=== PATIENT | male | born 1935 | race African-American/Black ===

== ENCOUNTER 2018-02-17 12:24 | Outpatient (CLI) | payer MEDICARE, BC | END 2018-02-17 12:25 | disposition home or self-care (01) | LOC: BICULT 12:24 | PROVIDERS: ATTEND Ophthalmology | DX: H34.211 Partial retinal artery occlusion, right eye (principal) | CPT/HCPCS: 93880 ==

== ENCOUNTER 2020-12-10 14:55 | Inpatient (IN) | payer MEDICARE, BC ==
[2020-12-10] MEDS ORDERED: Acetaminophen 325 MG TAB ONE (15:29)
[2020-12-10] MEDS ORDERED: Cefepime 2 GM VIAL ONE (15:29)
[2020-12-10 15:48] LABS: Actual Bicarbonate (HCO3a) 20.9 mEq/L (22-28); Analyzer IN Cardio ER; Base Excess (BEa) -2.3 mEq/L (-2.0 to +3.0); CO2 Tension 31.6 mmHg (35.0-45.0); Calcium, Ionized (arterial) 1.16 mmol/L (1.12-1.30); Carboxyhemoglobin (COHb) 0.9 gm% (0.0-3.0); Hemoglobin (Hb) 13.7 g/dL (14.0-18.0); O2 Tension (PaO2), arterial 75.9 mmHg (> 60.0); Potassium - ABG Lab 4.09 mmol/L (3.70-5.30); pH, Arterial 7.44 (7.35-7.45)
[2020-12-10 15:59] LABS: Puncture Site LRA
[2020-12-10 16:05] LABS: Hemoglobin 13.4 g/dL (14.0-18.0); Mean Corpuscular Hemoglobin 31.8 pg (27.0-31.0); Mean Corpuscular Volume 93.5 fL (78.0-98.0); Mean Platelet Volume 8.4 fL (7.4-10.4); Platelet Count 163 thou/uL (130-400); RBC Distribution Width 13.2 % (11.5-14.5); Red Blood Cell (RBC) Count 4.22 mill/uL (4.70-6.10); White Blood Cell (WBC) Count 14.1 thou/uL (4.8-10.8)
[2020-12-10 16:20] LABS: ALT (SGPT) 40 U/L (8-55); AST (SGOT) 58 U/L (5-34); Albumin 3.6 g/dL (3.4-4.8); Alkaline Phosphatase 71 U/L (40-110); Anion Gap 11 mmol/L (10-20); BUN (Urea Nitrogen) 26 mg/dL (8.4-25.7); Bilirubin, Total 1.3 mg/dL (0.2-1.2); Calc. Creatinine Clearance 0 mL/min (70-130); Calcium 8.4 mg/dL (7.8-10.44); Carbon Dioxide 23 mmol/L (23-31); Chloride 103 mmol/L (98-107); Globulin 3.4 g/dL (2.4-3.5); Glucose 188 mg/dL (83-110); Potassium 4.2 mmol/L (3.5-5.1); Sodium 133 mmol/L (136-145)
[2020-12-10 16:22] LABS: Band 30 % (5-11); Lymphocytes 2 % (21-51); MDiff Complete? YES; Monocytes 5 % (0-10); Neutrophil 58 % (42-75); Platelet Morphology Comment Appears Adequate; RBC Morphology Normal; Reactive Lymphocytes 5 % (0-10)
[2020-12-10] MEDS ORDERED: VANCOMYCIN 2 GRAM/400 ML BAG 2 GM in Premix Bag 1 BAG IVPB SCH (16:45)
[2020-12-10 16:57] LABS: Bacteria/HPF 1+ HPF (None Seen); Bilirubin Negative (Negative); Blood, Urine 3+ (Negative); Clarity Extra Turbid (Clear); Glucose, Urine (Dipstick) Normal (Negative); Ketone, Urine Trace mg/dL (Negative); Leukocyte 500 Leu/uL (Negative); Nitrite Negative (Negative); Protein, Urine (Dipstick) 70 mg/dL (Neg-Trace); RBC/HPF Greater than 50 HPF (0-3); Squamous Epithelial 0-3 HPF (0-3); Urobilinogen 6 mg/dL (Less than 2); WBC/HPF Greater than 50 HPF (0-3)
[2020-12-10 17:01] LABS: SARS-CoV-2 NAA Rapid Test Not Detected (NotDetected)
[2020-12-10 19:27] LABS: Lactic Acid 1.7 mmol/L (0.5-2.2)
[2020-12-10 20:38] VITALS: BMI 34.3
[2020-12-10] MEDS: Sodium Chloride 0.9% 1,000 ML IV SCH (22:00)
[2020-12-11] MEDS: Acetaminophen 500 MG TAB PO PRN (07:58)
[2020-12-11] MEDS: Sodium Chloride 0.9% 1,000 ML IV SCH ×2 (07:58→21:19)
[2020-12-11] MEDS ORDERED: FLU VACC QS2020-21(65YR UP)/PF 240 MCG/0.7 ML SYRINGE IM ONE (09:00)
[2020-12-11] MEDS ORDERED: Cefepime 2 GM in Sodium Chloride 0.9% 100 ML IVPB SCH (09:00)
[2020-12-11] MEDS ORDERED: Vancomycin 1 GM in Premix Bag 1 BAG IVPB SCH (09:00)
[2020-12-11 11:00] LABS: Anion Gap 9 mmol/L (10-20); BUN (Urea Nitrogen) 23 mg/dL (8.4-25.7); Calc. Creatinine Clearance 52 mL/min (70-130); Calcium 8.3 mg/dL (7.8-10.44); Carbon Dioxide 24 mmol/L (23-31); Chloride 104 mmol/L (98-107); Glucose 142 mg/dL (83-110); Potassium 3.9 mmol/L (3.5-5.1); Sodium 133 mmol/L (136-145)
[2020-12-11] MEDS: Cefepime 2 GM in Sodium Chloride 0.9% 100 ML IVPB SCH (14:41)
[2020-12-11] MEDS ORDERED: Vancomycin 1.5 GRAM/300 ML BAG 1.5 GM in Premix Bag 1 BAG IVPB SCH (15:00)
[2020-12-11] MEDS ORDERED: Lidocaine 1% (PF) 30 ML VIAL ONE (17:26)
[2020-12-11] MEDS ORDERED: Fentanyl 100 MCG/2 ML VIAL ONE (18:14)
[2020-12-11] MEDS ORDERED: Dexamethasone 20 MG/5 ML VIAL ONE (18:19)
[2020-12-11] MEDS ORDERED: PROPOFOL 200 MG/20 ML VIAL ONE (18:19)
[2020-12-11] MEDS ORDERED: Ondansetron PF 4 MG/2 ML Vial ONE (18:19)
[2020-12-11] MEDS ORDERED: Lidocaine 1% PF 5 ML VIAL ONE (18:19)
[2020-12-11] MEDS ORDERED: Ondansetron HCl/PF 4 MG/2 ML Vial IVP PRN (19:01)
[2020-12-11] MEDS ORDERED: Promethazine HCl 25 MG/ML VIAL IM PRN (19:01)
[2020-12-11] MEDS ORDERED: Promethazine HCl 25 MG/ML VIAL SLOW IVP PRN (19:01)
[2020-12-11] MEDS: Tamsulosin HCl 0.4 MG CAP PO SCH (21:19)
[2020-12-11] MEDS: Donepezil HCl 10 MG TAB PO SCH (21:19)
[2020-12-12] MEDS: Sodium Chloride 0.9% 1,000 ML IV SCH ×3 (05:25→23:57)
[2020-12-12 09:47] LABS: #Lymphocytes 1.1 thou/uL (1.20-3.40); #Monocytes 0.8 thou/uL (0.11-0.59); #Neutrophils 6.2 thou/uL (1.40-6.50); %Basophils 0.1 % (0.0-1.0); %Eosinophils 0.1 % (0.0-10.0); %Lymphocytes 13.4 % (21.0-51.0); %Monocytes 9.4 % (0.0-10.0); %Neutrophils 77.1 % (42.0-75.0); Hemoglobin 12.7 g/dL (14.0-18.0); Mean Corpuscular HGB CONC 32.1 g/dL (32.0-36.0); Mean Corpuscular Hemoglobin 29.9 pg (27.0-31.0); Mean Platelet Volume 8.6 fL (7.4-10.4); Platelet Count 158 thou/uL (130-400); RBC Distribution Width 12.9 % (11.5-14.5); Red Blood Cell (RBC) Count 4.27 mill/uL (4.70-6.10); White Blood Cell (WBC) Count 8.1 thou/uL (4.8-10.8)
[2020-12-12 09:59] LABS: Anion Gap 13 mmol/L (10-20); BUN (Urea Nitrogen) 21 mg/dL (8.4-25.7); Calc. Creatinine Clearance 66 mL/min (70-130); Calcium 8.5 mg/dL (7.8-10.44); Carbon Dioxide 21 mmol/L (23-31); Chloride 107 mmol/L (98-107); Glucose 133 mg/dL (83-110); Potassium 4.7 mmol/L (3.5-5.1); Sodium 136 mmol/L (136-145)
[2020-12-12] MEDS: Cefepime 2 GM in Sodium Chloride 0.9% 100 ML IVPB SCH (13:40)
[2020-12-12 14:44] LABS: Vancomycin, Trough 7.8 ug/mL
[2020-12-12] MEDS ORDERED: ALPRAZolam 0.25 MG TAB PO PRN (16:06)
[2020-12-12] MEDS ORDERED: ALPRAZolam 0.5 MG TAB PO SCH (20:45)
[2020-12-12] MEDS: Tamsulosin HCl 0.4 MG CAP PO SCH (20:53)
[2020-12-12] MEDS: Donepezil HCl 10 MG TAB PO SCH (20:53)
[2020-12-13] MEDS ORDERED: Lorazepam 2 MG/ML VIAL SLOW IVP SCH (00:15)
[2020-12-13] MEDS: Cefepime 2 GM in Sodium Chloride 0.9% 100 ML IVPB SCH (15:13)
[2020-12-13] MEDS: Sodium Chloride 0.9% 1,000 ML IV SCH ×2 (16:47→20:39)
[2020-12-13] MEDS: Donepezil HCl 10 MG TAB PO SCH (20:38)
[2020-12-13] MEDS: Tamsulosin HCl 0.4 MG CAP PO SCH (20:38)
[2020-12-14] MEDS ORDERED: Non-Formulary Item 1 EACH (Amlodipine Besylate [Amlodipine Besylate] 2.5 MG Tablet) PO SCH (09:00)
[2020-12-14] MEDS: Allopurinol 300 MG TAB PO SCH (09:12)
[2020-12-14] MEDS: Amlodipine 5 MG TAB PO SCH (09:12)
[2020-12-14] MEDS: Losartan 25 MG TAB PO SCH (09:13)
[2020-12-14] MEDS: Cefepime 2 GM in Sodium Chloride 0.9% 100 ML IVPB SCH (14:21)
[2020-12-14] MEDS: Sodium Chloride 0.9% 1,000 ML IV SCH ×2 (14:21→19:28)
[2020-12-14] MEDS: Acetaminophen 500 MG TAB PO PRN (17:02)
[2020-12-14] MEDS: Tamsulosin HCl 0.4 MG CAP PO SCH (19:28)
[2020-12-14] MEDS: Donepezil HCl 10 MG TAB PO SCH (19:28)
[2020-12-15] MEDS: Sodium Chloride 0.9% 1,000 ML IV SCH ×2 (02:53→12:51)
[2020-12-15] MEDS: Allopurinol 300 MG TAB PO SCH (08:57)
[2020-12-15] MEDS: Amlodipine 5 MG TAB PO SCH (08:57)
[2020-12-15] MEDS: Losartan 25 MG TAB PO SCH (08:58)
[2020-12-15] MEDS ORDERED: Cefdinir 300 MG CAP PO SCH (09:00)
[2020-12-15 17:40] VITALS: BP 132/71; TEMP 97.9
== END 2020-12-15 18:30 | disposition home or self-care (01) | DRG 871 ==
LOC: ERS 14:55 → 2NO 17:22 → ONC 12-12 15:36
PROVIDERS: ADMIT Internal Medicine; ATTEND Internal Medicine
PROC: 0T7D8ZZ Dilation of Urethra, Via Natural or Artificial Opening Endoscopic (ICD-10-PCS; principal; 2020-12-11)
PROC: 0T9B80Z Drainage of Bladder with Drainage Device, Via Natural or Artificial Opening Endoscopic (ICD-10-PCS; 2020-12-11)
DX: A41.9 Sepsis, unspecified organism (principal); G93.41 Metabolic encephalopathy; N39.0 Urinary tract infection, site not specified; E87.1 Hypo-osmolality and hyponatremia; N17.9 Acute kidney failure, unspecified; E87.2 Acidosis; F03.90 Unspecified dementia, unspecified severity, without behavioral disturbance, psychotic disturbance, mood disturbance, and anxiety; N35.919 Unspecified urethral stricture, male, unspecified site; R65.20 Severe sepsis without septic shock; R33.9 Retention of urine, unspecified; I10 Essential (primary) hypertension; M10.9 Gout, unspecified; Z20.822 Contact with and (suspected) exposure to COVID-19
CPT/HCPCS: 0240U; 36415; 36600; 71045; 74177; 80048; 80053; 80202; 81003; 81015; 82805; 83605; 85025; 87040; 87086; 93005; 93306; 96365; 96366; 96367; J0692; J1100; J2001; J2060; J2405; J2704; J3010; J3370; J3490

== ENCOUNTER 2020-12-22 13:14 | Inpatient (IN) | payer MEDICARE, BC ==
[2020-12-22 13:50] LABS: #Basophils 0.1 thou/uL (0.0-0.2); #Eosinphils 0.2 thou/uL (0.0-0.7); #Lymphocytes 1.1 thou/uL (1.20-3.40); #Monocytes 0.7 thou/uL (0.11-0.59); #Neutrophils 8.1 thou/uL (1.40-6.50); %Basophils 0.6 % (0.0-1.0); %Eosinophils 2.1 % (0.0-10.0); %Lymphocytes 10.7 % (21.0-51.0); %Monocytes 6.8 % (0.0-10.0); %Neutrophils 79.8 % (42.0-75.0); Hemoglobin 12.9 g/dL (14.0-18.0); Mean Corpuscular Hemoglobin 31.8 pg (27.0-31.0); Mean Corpuscular Volume 93.7 fL (78.0-98.0); Mean Platelet Volume 8.1 fL (7.4-10.4); Platelet Count 168 thou/uL (130-400); RBC Distribution Width 12.7 % (11.5-14.5); Red Blood Cell (RBC) Count 4.07 mill/uL (4.70-6.10); White Blood Cell (WBC) Count 10.2 thou/uL (4.8-10.8)
[2020-12-22] MEDS ORDERED: Cefepime 2 GM VIAL ONE (14:09)
[2020-12-22 14:11] LABS: ALT (SGPT) 37 U/L (8-55); AST (SGOT) 47 U/L (5-34); Albumin 3.6 g/dL (3.4-4.8); Alkaline Phosphatase 83 U/L (40-110); Anion Gap 10 mmol/L (10-20); BUN (Urea Nitrogen) 16 mg/dL (8.4-25.7); Bilirubin, Total 1.3 mg/dL (0.2-1.2); Calc. Creatinine Clearance 0 mL/min (70-130); Calcium 8.8 mg/dL (7.8-10.44); Carbon Dioxide 29 mmol/L (23-31); Chloride 98 mmol/L (98-107); Glucose 106 mg/dL (83-110); Lipase 40 U/L (8-78); Potassium 4.4 mmol/L (3.5-5.1); Protein, Total 7.6 g/dL (5.8-8.1); Sodium 133 mmol/L (136-145)
[2020-12-22 14:23] LABS: Bacteria/HPF 1+ HPF (None Seen); Bilirubin Negative (Negative); Blood, Urine Trace (Negative); Clarity Clear (Clear); Glucose, Urine (Dipstick) Normal (Negative); Ketone, Urine Negative (Negative); Leukocyte Negative Leu/uL (Negative); Nitrite Negative (Negative); Protein, Urine (Dipstick) 20 mg/dL (Neg-Trace); Specific Gravity, Urine 1.023 (1.002-1.036); Squamous Epithelial None Seen HPF (0-3); pH, Urine 7.5 (5.0-9.0)
[2020-12-22] MEDS ORDERED: Vancomycin 1 GM/200 ML BAG ONE (15:12)
[2020-12-22] MEDS ORDERED: Acetaminophen 500 MG TAB ONE (15:32)
[2020-12-22] MEDS ORDERED: Oseltamivir 75 MG CAP PO SCH (16:30)
[2020-12-22 17:19] LABS: SARS-CoV-2 PCR by NAA Not Detected (NotDetected)
[2020-12-22] MEDS ORDERED: Senokot S 8.6-50 MG TAB PO PRN (17:39)
[2020-12-22] MEDS ORDERED: Sodium Chloride 0.9% 500 ML IV SCH (17:45)
[2020-12-22 19:34] VITALS: BMI 35.6
[2020-12-22] MEDS: Donepezil HCl 10 MG TAB PO SCH ×2 (20:03→20:26)
[2020-12-22] MEDS: Famotidine 20 MG TAB PO SCH ×2 (20:03→20:25)
[2020-12-23] MEDS: Acetaminophen 325 MG TAB PO PRN ×2 (01:08→19:36)
[2020-12-23] MEDS: Famotidine 20 MG TAB PO SCH ×2 (08:05→19:36)
[2020-12-23] MEDS: Oseltamivir 75 MG CAP PO SCH ×2 (08:05→19:36)
[2020-12-23] MEDS: Losartan 25 MG TAB PO SCH (08:05)
[2020-12-23] MEDS: Amlodipine 5 MG TAB PO SCH (08:05)
[2020-12-23] MEDS: Enoxaparin Sodium 40 MG/0.4 ML SYRINGE SC SCH (08:06)
[2020-12-23] MEDS: Allopurinol 300 MG TAB PO SCH (08:06)
[2020-12-23 17:16] LABS: #Eosinphils 0.4 thou/uL (0.0-0.7); #Lymphocytes 1.3 thou/uL (1.20-3.40); #Monocytes 0.8 thou/uL (0.11-0.59); #Neutrophils 5.3 thou/uL (1.40-6.50); %Basophils 0.2 % (0.0-1.0); %Eosinophils 5.3 % (0.0-10.0); %Lymphocytes 16.6 % (21.0-51.0); %Monocytes 10.2 % (0.0-10.0); %Neutrophils 67.8 % (42.0-75.0); Hemoglobin 12.4 g/dL (14.0-18.0); Mean Corpuscular HGB CONC 32.7 g/dL (32.0-36.0); Mean Corpuscular Hemoglobin 30.3 pg (27.0-31.0); Mean Corpuscular Volume 92.6 fL (78.0-98.0); Mean Platelet Volume 8.4 fL (7.4-10.4); Platelet Count 169 thou/uL (130-400); RBC Distribution Width 12.8 % (11.5-14.5); Red Blood Cell (RBC) Count 4.09 mill/uL (4.70-6.10); White Blood Cell (WBC) Count 7.9 thou/uL (4.8-10.8)
[2020-12-23 17:38] LABS: Anion Gap 11 mmol/L (10-20); BUN (Urea Nitrogen) 17 mg/dL (8.4-25.7); Calc. Creatinine Clearance 60 mL/min (70-130); Calcium 8.6 mg/dL (7.8-10.44); Carbon Dioxide 28 mmol/L (23-31); Chloride 97 mmol/L (98-107); Glucose 136 mg/dL (83-110); Sodium 132 mmol/L (136-145)
[2020-12-23] MEDS: Donepezil HCl 10 MG TAB PO SCH (19:35)
[2020-12-23] MEDS: ALPRAZolam 0.25 MG TAB PO PRN (20:00)
[2020-12-23] MEDS ORDERED: traZODone HCl 50 MG TAB PO SCH (23:59)
[2020-12-24] MEDS: Amlodipine 5 MG TAB PO SCH (13:07)
[2020-12-24] MEDS: Famotidine 20 MG TAB PO SCH ×2 (13:07→20:06)
[2020-12-24] MEDS: Acetaminophen 325 MG TAB PO PRN (13:07)
[2020-12-24] MEDS: Allopurinol 300 MG TAB PO SCH (13:07)
[2020-12-24] MEDS: Losartan 25 MG TAB PO SCH (13:08)
[2020-12-24] MEDS: Oseltamivir 75 MG CAP PO SCH ×2 (13:08→20:06)
[2020-12-24] MEDS: Enoxaparin Sodium 40 MG/0.4 ML SYRINGE SC SCH (13:08)
[2020-12-24] MEDS: Donepezil HCl 10 MG TAB PO SCH (20:06)
[2020-12-24] MEDS: ALPRAZolam 0.25 MG TAB PO PRN (20:07)
[2020-12-25 07:57] VITALS: BP 120/71; TEMP 97.7
[2020-12-25] MEDS: Famotidine 20 MG TAB PO SCH (09:36)
[2020-12-25] MEDS: Amlodipine 5 MG TAB PO SCH (09:36)
[2020-12-25] MEDS: Enoxaparin Sodium 40 MG/0.4 ML SYRINGE SC SCH (09:36)
[2020-12-25] MEDS: Allopurinol 300 MG TAB PO SCH (09:38)
[2020-12-25] MEDS: Oseltamivir 75 MG CAP PO SCH (09:38)
[2020-12-25] MEDS: Losartan 25 MG TAB PO SCH (09:38)
[2020-12-25] MEDS ORDERED: Cefdinir 300 MG CAP PO SCH (12:30)
[2020-12-26] MEDS ORDERED: Cefdinir 300 MG CAP PO SCH (09:00)
== END 2020-12-25 14:16 | disposition home or self-care (01) | DRG 193 ==
LOC: ERS 13:14 → T4-A 17:24 → OBSVTOIN 12-23 12:53
PROVIDERS: ADMIT Internal Medicine; ATTEND Internal Medicine
DX: J10.1 Influenza due to other identified influenza virus with other respiratory manifestations (principal); G93.41 Metabolic encephalopathy; I50.32 Chronic diastolic (congestive) heart failure; N39.0 Urinary tract infection, site not specified; N17.9 Acute kidney failure, unspecified; I13.0 Hypertensive heart and chronic kidney disease with heart failure and stage 1 through stage 4 chronic kidney disease, or unspecified chronic kidney disease; Z16.29 Resistance to other single specified antibiotic; F03.90 Unspecified dementia, unspecified severity, without behavioral disturbance, psychotic disturbance, mood disturbance, and anxiety; B96.5 Pseudomonas (aeruginosa) (mallei) (pseudomallei) as the cause of diseases classified elsewhere; R33.9 Retention of urine, unspecified; N18.9 Chronic kidney disease, unspecified; I25.10 Atherosclerotic heart disease of native coronary artery without angina pectoris; Z20.822 Contact with and (suspected) exposure to COVID-19
CPT/HCPCS: 36415; 70450; 71045; 80048; 80053; 81003; 81015; 83605; 83690; 83880; 84484; 85025; 87040; 87077; 87086; 87186; 87635; 87804; 93005; 96365; 96367; 96372; G0378; J0692; J1650; J3370; U0003; U0005

== ENCOUNTER 2021-06-04 13:27 | Outpatient (CLI) | payer MEDICARE, BC | END 2021-06-04 13:28 | disposition home or self-care (01) | LOC: BICCT 13:27 | PROVIDERS: ATTEND Psychiatry & Neurology Neurology | DX: F03.90 Unspecified dementia, unspecified severity, without behavioral disturbance, psychotic disturbance, mood disturbance, and anxiety (principal); I67.89 Other cerebrovascular disease | CPT/HCPCS: 70450 ==

== ENCOUNTER 2021-07-14 22:43 | Emergency (ER) | payer MEDICARE, BC ==
[2021-07-15 00:17] LABS: #Eosinphils 0.5 thou/uL (0.0-0.7); #Lymphocytes 1.8 thou/uL (1.20-3.40); #Monocytes 0.6 thou/uL (0.11-0.59); #Neutrophils 3.7 thou/uL (1.40-6.50); %Basophils 0.5 % (0.0-1.0); %Eosinophils 7.5 % (0.0-10.0); %Lymphocytes 26.9 % (21.0-51.0); %Monocytes 9.6 % (0.0-10.0); %Neutrophils 55.5 % (42.0-75.0); Hemoglobin 12.7 g/dL (14.0-18.0); Mean Corpuscular HGB CONC 34.2 g/dL (32.0-36.0); Mean Corpuscular Hemoglobin 31.6 pg (27.0-31.0); Mean Corpuscular Volume 92.4 fL (78.0-98.0); Mean Platelet Volume 8.2 fL (7.4-10.4); Platelet Count 175 thou/uL (130-400); RBC Distribution Width 13.6 % (11.5-14.5); Red Blood Cell (RBC) Count 4.02 mill/uL (4.70-6.10); White Blood Cell (WBC) Count 6.7 thou/uL (4.8-10.8)
[2021-07-15 00:36] LABS: Anion Gap 11 mmol/L (10-20); BUN (Urea Nitrogen) 11 mg/dL (8.4-25.7); Calc. Creatinine Clearance 0 mL/min (70-130); Calcium 9.3 mg/dL (7.8-10.44); Carbon Dioxide 28 mmol/L (23-31); Chloride 102 mmol/L (98-107); Glucose 116 mg/dL (83-110); Potassium 4.3 mmol/L (3.5-5.1); Sodium 137 mmol/L (136-145)
[2021-07-15 01:13] LABS: ALT (SGPT) 35 U/L (8-55); AST (SGOT) 55 U/L (5-34); Albumin 3.7 g/dL (3.4-4.8); Alkaline Phosphatase 84 U/L (40-110); Bilirubin, Direct 0.3 mg/dL (0.1-0.3); Bilirubin, Total 0.8 mg/dL (0.2-1.2); Lipase 28 U/L (8-78); Protein, Total 7.4 g/dL (5.8-8.1)
[2021-07-15 02:26] LABS: Bacteria/HPF None Seen HPF (None Seen); Bilirubin Negative (Negative); Blood, Urine 1+ (Negative); Clarity Extra Turbid (Clear); Glucose, Urine (Dipstick) Normal (Negative); Ketone, Urine Negative (Negative); Leukocyte 500 Leu/uL (Negative); Nitrite 1+ (Negative); Protein, Urine (Dipstick) 10 mg/dL (Neg-Trace); Specific Gravity, Urine 1.013 (1.002-1.036); Squamous Epithelial None Seen HPF (0-3); Urobilinogen Normal mg/dL (Less than 2); WBC/HPF Greater than 50 HPF (0-3); pH, Urine 6.5 (5.0-9.0)
[2021-07-15] MEDS ORDERED: Lidocaine 1% (PF) 30 ML VIAL ONE (03:02)
[2021-07-15] MEDS ORDERED: cefTRIAXone\\ROCEPHIN 1 GM VIAL ONE (03:02)
== END 2021-07-15 03:40 | disposition home or self-care (01) ==
LOC: ERS 22:43
DX: N39.0 Urinary tract infection, site not specified (principal); Z87.891 Personal history of nicotine dependence; F03.90 Unspecified dementia, unspecified severity, without behavioral disturbance, psychotic disturbance, mood disturbance, and anxiety
CPT/HCPCS: 36415; 51701; 70450; 71045; 80048; 80076; 81003; 81015; 83690; 85025; 87077; 87086; 87186; 96372; J0696; J2001

== ENCOUNTER 2022-12-28 18:16 | Inpatient (IN) | payer MEDICARE, BC ==
[2022-12-28 19:02] LABS: #Lymphocytes 1.9 thou/uL (1.20-3.40); #Monocytes 0.5 thou/uL (0.11-0.59); #Neutrophils 3.2 thou/uL (1.40-6.50); %Basophils 0.4 % (0.0-1.0); %Eosinophils 0.7 % (0.0-10.0); %Lymphocytes 33.7 % (21.0-51.0); %Monocytes 9.4 % (0.0-10.0); %Neutrophils 55.9 % (42.0-75.0); Hemoglobin 11.7 g/dL (14.0-18.0); Mean Corpuscular Volume 96.9 fl (78.0-98.0); Mean Platelet Volume 8.4 fL (7.4-10.4); Platelet Count 135 10x3/uL (130-400); RBC Distribution Width 13.4 % (11.5-14.5); Red Blood Cell (RBC) Count 3.66 mill/uL (4.70-6.10); White Blood Cell (WBC) Count 5.8 10x3/uL (4.8-10.8)
[2022-12-28 19:17] LABS: PTT 28.1 sec (22.9-36.1); Prothrombin Time 13.9 sec (12.0-14.7)
[2022-12-28 19:27] LABS: ALT (SGPT) 12 U/L (8-55); AST (SGOT) 27 U/L (5-34); Albumin 3.6 g/dL (3.4-4.8); Alkaline Phosphatase 72 U/L (40-110); Anion Gap 11 mmol/L (10-20); BUN (Urea Nitrogen) 20 mg/dL (8.4-25.7); Bilirubin, Total 0.5 mg/dL (0.2-1.2); Calc. Creatinine Clearance 0 mL/min (70-130); Calcium 9.3 mg/dL (7.8-10.44); Carbon Dioxide 26 mmol/L (23-31); Chloride 104 mmol/L (98-107); Estimated GFR 34; Globulin 3.6 g/dL (2.4-3.5); Glucose 120 mg/dL (83-110); Lipase 59 U/L (8-78); Potassium 4.1 mmol/L (3.5-5.1); Protein, Total 7.2 g/dL (5.8-8.1); Sodium 137 mmol/L (136-145)
[2022-12-28 20:59] LABS: Bacteria/HPF 4+ HPF (None Seen); Bilirubin Negative (Negative); Blood, Urine 3+ (Negative); Clarity Extra Turbid (Clear); Glucose, Urine (Dipstick) Normal (Negative); Ketone, Urine Negative (Negative); Leukocyte 500 Leu/uL (Negative); Nitrite 2+ (Negative); Protein, Urine (Dipstick) 30 mg/dL (Neg-Trace); RBC/HPF Greater than 50 HPF (0-3); Specific Gravity, Urine 1.021 (1.002-1.036); Urobilinogen Normal mg/dL (Less than 2); WBC/HPF Greater than 50 HPF (0-3); pH, Urine 5.5 (5.0-9.0)
[2022-12-28] MEDS ORDERED: Ondansetron ODT 4 MG TAB SL PRN (22:30)
[2022-12-28] MEDS ORDERED: Ondansetron PF 4 MG/2 ML Vial IVP PRN (22:30)
[2022-12-28] MEDS ORDERED: cefTRIAXone (ROCEPHIN) 2 GM VIAL ONE (22:32)
[2022-12-28 23:22] LABS: Troponin I Less than 0.010 ng/mL (< 0.028)
[2022-12-28 23:44] VITALS: BMI 33.5
[2022-12-28] MEDS ORDERED: Donepezil HCl 10 MG TAB PO SCH (23:45)
[2022-12-28] MEDS ORDERED: Tamsulosin HCl 0.4 MG CAP PO SCH (23:45)
[2022-12-28] MEDS ORDERED: QUEtiapine 25 MG TAB PO SCH (23:45)
[2022-12-29] MEDS: Sodium Chloride 0.9% 1,000 ML IV SCH ×2 (00:01→11:17)
[2022-12-29] MEDS: traMADol HCl 50 MG TAB PO PRN (00:17)
[2022-12-29 02:15] LABS: Troponin I Less than 0.010 ng/mL (< 0.028)
[2022-12-29] MEDS: Cefepime 2 GM in Sodium Chloride 0.9% 100 ML IVPB SCH ×2 (05:20→18:27)
[2022-12-29 06:19] LABS: #Lymphocytes 1.6 thou/uL (1.20-3.40); #Monocytes 0.6 thou/uL (0.11-0.59); #Neutrophils 3.4 thou/uL (1.40-6.50); %Basophils 0.1 % (0.0-1.0); %Eosinophils 0.9 % (0.0-10.0); %Lymphocytes 27.7 % (21.0-51.0); %Monocytes 10.3 % (0.0-10.0); %Neutrophils 61.1 % (42.0-75.0); Hemoglobin 10.8 g/dL (14.0-18.0); Mean Corpuscular HGB CONC 33.1 g/dL (32.0-36.0); Mean Corpuscular Hemoglobin 32.5 pg (27.0-31.0); Mean Platelet Volume 8.4 fL (7.4-10.4); Platelet Count 125 10x3/uL (130-400); RBC Distribution Width 13.5 % (11.5-14.5); Red Blood Cell (RBC) Count 3.34 mill/uL (4.70-6.10); White Blood Cell (WBC) Count 5.6 10x3/uL (4.8-10.8)
[2022-12-29 06:43] LABS: Anion Gap 11 mmol/L (10-20); BUN (Urea Nitrogen) 22 mg/dL (8.4-25.7); Calc. Creatinine Clearance 38 mL/min (70-130); Calcium 8.5 mg/dL (7.8-10.44); Carbon Dioxide 26 mmol/L (23-31); Chloride 106 mmol/L (98-107); Estimated GFR 33; Glucose 120 mg/dL (83-110); Potassium 3.9 mmol/L (3.5-5.1); Sodium 139 mmol/L (136-145)
[2022-12-29] MEDS: Escitalopram Oxalate 20 mg Tablet PO SCH (09:07)
[2022-12-29] MEDS: Allopurinol 300 MG TAB PO SCH (09:07)
[2022-12-29] MEDS: Losartan 25 MG TAB PO SCH (09:19)
[2022-12-29] MEDS: Amlodipine 5 MG TAB PO SCH (09:19)
[2022-12-29] MEDS: QUEtiapine 25 MG TAB PO SCH (20:37)
[2022-12-29] MEDS: Ziprasidone 20 MG CAP PO SCH (20:37)
[2022-12-29] MEDS: Acetaminophen 325 MG TAB PO PRN (20:37)
[2022-12-29] MEDS: Tamsulosin HCl 0.4 MG CAP PO SCH (20:38)
[2022-12-29] MEDS: Donepezil HCl 10 MG TAB PO SCH (20:38)
[2022-12-29] MEDS ORDERED: cefTRIAXone\\ROCEPHIN 1 GM in Sodium Chloride 0.9% 100 ML IVPB SCH (21:00)
[2022-12-30] MEDS: Cefepime 2 GM in Sodium Chloride 0.9% 100 ML IVPB SCH ×2 (05:28→18:41)
[2022-12-30] MEDS: Allopurinol 300 MG TAB PO SCH (09:13)
[2022-12-30] MEDS: Escitalopram Oxalate 20 mg Tablet PO SCH (09:13)
[2022-12-30] MEDS: Losartan 25 MG TAB PO SCH (09:13)
[2022-12-30] MEDS: Amlodipine 5 MG TAB PO SCH (09:13)
[2022-12-30] MEDS: Sodium Chloride 0.9% 1,000 ML IV SCH (12:15)
[2022-12-30] MEDS: Ciprofloxacin 0.3% Ophth Soln 2.5 ml Bottle EA EYE SCH (20:03)
[2022-12-30] MEDS: Ziprasidone 20 MG CAP PO SCH (20:04)
[2022-12-30] MEDS: QUEtiapine 25 MG TAB PO SCH (20:04)
[2022-12-30] MEDS: Donepezil HCl 10 MG TAB PO SCH (20:04)
[2022-12-30] MEDS: Tamsulosin HCl 0.4 MG CAP PO SCH (20:04)
[2022-12-30] MEDS: Acetaminophen 325 MG TAB PO PRN (20:05)
[2022-12-31] MEDS: Cefepime 2 GM in Sodium Chloride 0.9% 100 ML IVPB SCH ×2 (05:27→17:20)
[2022-12-31] MEDS: Amlodipine 5 MG TAB PO SCH (08:26)
[2022-12-31] MEDS: Losartan 25 MG TAB PO SCH (08:26)
[2022-12-31] MEDS: Escitalopram Oxalate 20 mg Tablet PO SCH (08:26)
[2022-12-31] MEDS: Allopurinol 300 MG TAB PO SCH (08:26)
[2022-12-31] MEDS: Ciprofloxacin 0.3% Ophth Soln 2.5 ml Bottle EA EYE SCH ×2 (08:33→21:26)
[2022-12-31] MEDS: Sodium Chloride 0.9% 1,000 ML IV SCH (11:23)
[2022-12-31] MEDS: Acetaminophen 325 MG TAB PO PRN ×2 (16:16→21:28)
[2022-12-31] MEDS: QUEtiapine 25 MG TAB PO SCH (21:26)
[2022-12-31] MEDS: Ziprasidone 20 MG CAP PO SCH (21:27)
[2022-12-31] MEDS: Tamsulosin HCl 0.4 MG CAP PO SCH (21:27)
[2022-12-31] MEDS: Donepezil HCl 10 MG TAB PO SCH (21:27)
[2022-12-31] MEDS: traMADol HCl 50 MG TAB PO PRN (21:27)
[2023-01-01] MEDS: Sodium Chloride 0.9% 1,000 ML IV SCH (05:34)
[2023-01-01] MEDS: Cefepime 2 GM in Sodium Chloride 0.9% 100 ML IVPB SCH (05:34)
[2023-01-01] MEDS: Ciprofloxacin 0.3% Ophth Soln 2.5 ml Bottle EA EYE SCH ×2 (09:45→21:25)
[2023-01-01] MEDS: Losartan 25 MG TAB PO SCH (09:49)
[2023-01-01] MEDS: Amlodipine 5 MG TAB PO SCH (09:49)
[2023-01-01] MEDS: Escitalopram Oxalate 20 mg Tablet PO SCH (09:50)
[2023-01-01] MEDS: Allopurinol 300 MG TAB PO SCH (09:50)
[2023-01-01] MEDS ORDERED: Cefdinir 300 MG CAP PO SCH (16:45)
[2023-01-01] MEDS ORDERED: Cefepime 1 GM in Sodium Chloride 0.9% 100 ML IVPB SCH (18:00)
[2023-01-01] MEDS: Ziprasidone 20 MG CAP PO SCH (21:24)
[2023-01-01] MEDS: QUEtiapine 25 MG TAB PO SCH (21:26)
[2023-01-01] MEDS: Tamsulosin HCl 0.4 MG CAP PO SCH (21:26)
[2023-01-01] MEDS: Donepezil HCl 10 MG TAB PO SCH (21:26)
[2023-01-01] MEDS: Acetaminophen 325 MG TAB PO PRN (21:26)
[2023-01-01] MEDS: traMADol HCl 50 MG TAB PO PRN (21:27)
[2023-01-02] MEDS: Sodium Chloride 0.9% 1,000 ML IV SCH ×2 (01:00→23:00)
[2023-01-02] MEDS: Ciprofloxacin 0.3% Ophth Soln 2.5 ml Bottle EA EYE SCH ×2 (10:38→20:50)
[2023-01-02] MEDS: Escitalopram Oxalate 20 mg Tablet PO SCH (10:39)
[2023-01-02] MEDS: Losartan 25 MG TAB PO SCH (10:39)
[2023-01-02] MEDS: Allopurinol 300 MG TAB PO SCH (10:39)
[2023-01-02] MEDS: Amlodipine 5 MG TAB PO SCH (10:39)
[2023-01-02] MEDS: Cefdinir 300 MG CAP PO SCH (10:40)
[2023-01-02] MEDS: Acetaminophen 325 MG TAB PO PRN (16:46)
[2023-01-02] MEDS: traMADol HCl 50 MG TAB PO PRN (16:46)
[2023-01-02] MEDS: Tamsulosin HCl 0.4 MG CAP PO SCH (20:50)
[2023-01-02] MEDS: Ziprasidone 20 MG CAP PO SCH (20:50)
[2023-01-02] MEDS: Donepezil HCl 10 MG TAB PO SCH (20:51)
[2023-01-02] MEDS: QUEtiapine 25 MG TAB PO SCH (20:51)
[2023-01-03] MEDS: Escitalopram Oxalate 20 mg Tablet PO SCH (09:33)
[2023-01-03] MEDS: Amlodipine 5 MG TAB PO SCH (09:33)
[2023-01-03] MEDS: Cefdinir 300 MG CAP PO SCH (09:33)
[2023-01-03] MEDS: Allopurinol 300 MG TAB PO SCH (09:33)
[2023-01-03] MEDS: Losartan 25 MG TAB PO SCH (09:34)
[2023-01-03] MEDS: Ciprofloxacin 0.3% Ophth Soln 2.5 ml Bottle EA EYE SCH ×2 (09:34→20:49)
[2023-01-03] MEDS: Sodium Chloride 0.9% 1,000 ML IV SCH (15:58)
[2023-01-03] MEDS: QUEtiapine 25 MG TAB PO SCH (20:49)
[2023-01-03] MEDS: Tamsulosin HCl 0.4 MG CAP PO SCH (20:49)
[2023-01-03] MEDS: Donepezil HCl 10 MG TAB PO SCH (20:50)
[2023-01-03] MEDS: Ziprasidone 20 MG CAP PO SCH (20:50)
[2023-01-03] MEDS: traMADol HCl 50 MG TAB PO PRN (20:50)
[2023-01-03] MEDS: Acetaminophen 325 MG TAB PO PRN (20:51)
[2023-01-04] MEDS: Losartan 25 MG TAB PO SCH (08:48)
[2023-01-04] MEDS: Escitalopram Oxalate 20 mg Tablet PO SCH (08:49)
[2023-01-04] MEDS: Cefdinir 300 MG CAP PO SCH (08:49)
[2023-01-04] MEDS: Amlodipine 5 MG TAB PO SCH (08:49)
[2023-01-04] MEDS: Allopurinol 300 MG TAB PO SCH (08:49)
[2023-01-04] MEDS: Ciprofloxacin 0.3% Ophth Soln 2.5 ml Bottle EA EYE SCH ×2 (08:49→21:14)
[2023-01-04] MEDS ORDERED: Lidocaine 4% Patch TD SCH (09:30)
[2023-01-04] MEDS: Sodium Chloride 0.9% 1,000 ML IV SCH (11:59)
[2023-01-04] MEDS: Donepezil HCl 10 MG TAB PO SCH (21:13)
[2023-01-04] MEDS: QUEtiapine 25 MG TAB PO SCH (21:13)
[2023-01-04] MEDS: Tamsulosin HCl 0.4 MG CAP PO SCH (21:13)
[2023-01-04] MEDS: Ziprasidone 20 MG CAP PO SCH (21:13)
[2023-01-04] MEDS ORDERED: Transdermal Patch Removal TOP SCH (21:30)
[2023-01-05] MEDS: Sodium Chloride 0.9% 1,000 ML IV SCH (08:59)
[2023-01-05] MEDS: Lidocaine 4% Patch TD SCH (09:01)
[2023-01-05] MEDS: Losartan 25 MG TAB PO SCH (09:01)
[2023-01-05] MEDS: Cefdinir 300 MG CAP PO SCH (09:01)
[2023-01-05] MEDS: Allopurinol 300 MG TAB PO SCH (09:01)
[2023-01-05] MEDS: Amlodipine 5 MG TAB PO SCH (09:01)
[2023-01-05] MEDS: Escitalopram Oxalate 20 mg Tablet PO SCH (09:01)
[2023-01-05 11:54] LABS: Anion Gap 11 mmol/L (10-20); BUN (Urea Nitrogen) 18 mg/dL (8.4-25.7); Calc. Creatinine Clearance 50 mL/min (70-130); Calcium 9.3 mg/dL (7.8-10.44); Carbon Dioxide 27 mmol/L (23-31); Chloride 103 mmol/L (98-107); Estimated GFR 45; Glucose 109 mg/dL (83-110); Potassium 3.9 mmol/L (3.5-5.1); Sodium 137 mmol/L (136-145)
[2023-01-05] MEDS: Tamsulosin HCl 0.4 MG CAP PO SCH (21:21)
[2023-01-05] MEDS: Donepezil HCl 10 MG TAB PO SCH (21:21)
[2023-01-05] MEDS: Ziprasidone 20 MG CAP PO SCH (21:21)
[2023-01-05] MEDS: QUEtiapine 25 MG TAB PO SCH (21:21)
[2023-01-05] MEDS: Transdermal Patch Removal TOP SCH (21:22)
[2023-01-06] MEDS: Allopurinol 300 MG TAB PO SCH (08:21)
[2023-01-06] MEDS: Losartan 25 MG TAB PO SCH (08:21)
[2023-01-06] MEDS: Escitalopram Oxalate 20 mg Tablet PO SCH (08:21)
[2023-01-06] MEDS: Amlodipine 5 MG TAB PO SCH (08:21)
[2023-01-06] MEDS: Cefdinir 300 MG CAP PO SCH (08:21)
[2023-01-06] MEDS: Lidocaine 4% Patch TD SCH (08:35)
[2023-01-06] MEDS ORDERED: Polymyxin B Sulf/Trimethoprim 10 ML OPHTH DROPS EA EYE SCH ×2 (11:45→15:00)
[2023-01-06 11:50] VITALS: BP 120/72; TEMP 98
[2023-01-06] MEDS: Transdermal Patch Removal TOP SCH (12:36)
== END 2023-01-06 12:59 | DRG 689 ==
LOC: ERS 18:16 → T4-B 22:25 → OBSVTOIN 12-29 08:14
PROVIDERS: ADMIT Student in an Organized Health Care Education/Training Program; ATTEND Family Medicine
DX: N30.00 Acute cystitis without hematuria (principal); G93.41 Metabolic encephalopathy; F03.918 Unspecified dementia, unspecified severity, with other behavioral disturbance; N18.31 Chronic kidney disease, stage 3a; I12.9 Hypertensive chronic kidney disease with stage 1 through stage 4 chronic kidney disease, or unspecified chronic kidney disease; E11.22 Type 2 diabetes mellitus with diabetic chronic kidney disease; Z79.899 Other long term (current) drug therapy
CPT/HCPCS: 36415; 70450; 71045; 72050; 80048; 80053; 81003; 81015; 83605; 83690; 84443; 84484; 85025; 85610; 85730; 87040; 87077; 87086; 87186; 93005; 94760; 96361; 96374; 96375; G0378; J0692; J0696; J1650; J3490; J7050

== ENCOUNTER 2023-07-03 03:54 | Emergency (ER) | payer MEDICARE, BC ==
[2023-07-03 04:47] LABS: #Monocytes 0.8 thou/uL (0.11-0.59); #Neutrophils 3.2 thou/uL (1.40-6.50); %Basophils 0.7 % (0.0-1.0); %Eosinophils 0.7 % (0.0-10.0); %Lymphocytes 28.2 % (21.0-51.0); %Monocytes 13.9 % (0.0-10.0); Hematocrit 36.3 % (42.0-52.0); Mean Corpuscular HGB CONC 33.1 g/dL (32.0-36.0); Mean Corpuscular Hemoglobin 31.4 pg (27.0-31.0); Mean Platelet Volume 10.6 fL (7.4-10.4); Platelet Count 155 10x3/uL (130-400); RBC Distribution Width 14.6 % (11.5-14.5); Red Blood Cell (RBC) Count 3.82 mill/uL (4.70-6.10); White Blood Cell (WBC) Count 5.8 10x3/uL (4.8-10.8)
[2023-07-03 05:09] LABS: ALT (SGPT) 14 U/L (8-55); AST (SGOT) 31 U/L (5-34); Albumin 4.1 g/dL (3.4-4.8); Alkaline Phosphatase 67 U/L (40-110); Anion Gap 12 mmol/L (10-20); BUN (Urea Nitrogen) 18 mg/dL (8.4-25.7); Bilirubin, Total 0.7 mg/dL (0.2-1.2); Calc. Creatinine Clearance 0 mL/min (70-130); Calcium 9.2 mg/dL (7.8-10.44); Carbon Dioxide 28 mmol/L (23-31); Chloride 101 mmol/L (98-107); Estimated GFR 21; Globulin 3.4 g/dL (2.4-3.5); Glucose 118 mg/dL (83-110); Lipase 44 U/L (8-78); Magnesium 1.8 mg/dL (1.6-2.6); Potassium 3.7 mmol/L (3.5-5.1); Protein, Total 7.5 g/dL (5.8-8.1); Sodium 137 mmol/L (136-145)
[2023-07-03 05:13] LABS: Troponin I Less than 0.010 ng/mL (< 0.028)
[2023-07-03 08:56] LABS: Bacteria/HPF None Seen HPF (None Seen); Bilirubin Negative (Negative); Blood, Urine 1+ (Negative); CAUTI Indications for Culture Alt mental st,lethar; Clarity Extra Turbid (Clear); Glucose, Urine (Dipstick) Normal (Negative); Ketone, Urine Negative (Negative); Leukocyte 500 Leu/uL (Negative); Nitrite Negative (Negative); Protein, Urine (Dipstick) 50 mg/dL (Neg-Trace); RBC/HPF 21-50 HPF (0-3); Specific Gravity, Urine 1.018 (1.002-1.036); Urobilinogen Normal mg/dL (Less than 2); WBC/HPF Greater than 50 HPF (0-3); pH, Urine 5.5 (5.0-9.0)
[2023-07-03 09:24] LABS: Urine Culture Reflex Yes Yes
== END 2023-07-03 10:09 | disposition home or self-care (01) ==
LOC: ERS 03:54 → EDBD 03:54 → ERS 10:09
DX: S09.90XA Unspecified injury of head, initial encounter (principal); N39.0 Urinary tract infection, site not specified; Z87.891 Personal history of nicotine dependence; W06.XXXA Fall from bed, initial encounter
CPT/HCPCS: 70450; 71045; 72125; 80053; 81001; 83605; 83690; 83735; 83880; 84484; 85025; 87086; 93005

== ENCOUNTER 2024-03-07 11:45 | Outpatient (CLI) | payer MEDICARE, BC | END 2024-03-07 11:46 | disposition home or self-care (01) | LOC: PET 11:45 | PROVIDERS: ATTEND Psychiatry & Neurology Neurology | DX: F03.90 Unspecified dementia, unspecified severity, without behavioral disturbance, psychotic disturbance, mood disturbance, and anxiety (principal) | CPT/HCPCS: 78803; A9552 ==

== ENCOUNTER 2024-07-03 21:48 | Inpatient (IN) | payer MEDICARE, BC ==
[2024-07-03] MEDS ORDERED: Sodium Chloride 0.9% 100 ML ONE (23:36)
[2024-07-03] MEDS ORDERED: cefTRIAXone (ROCEPHIN) 1 GM VIAL ONE (23:36)
[2024-07-03 23:47] LABS: #Basophils 0.03 10x3/uL (0.0-0.2); %Basophils 0.4 % (0.0-1.0); %Eosinophils 2.8 % (0.0-10.0); %Lymphocytes 12.2 % (21.0-51.0); %Monocytes 9.1 % (0.0-10.0); %Neutrophils 75.2 % (42.0-75.0); Hematocrit 40.3 % (42.0-52.0); Hemoglobin 12.5 g/dL (14.0-18.0); Mean Corpuscular Hemoglobin 29.8 pg (27.0-31.0); Mean Platelet Volume 10.9 fL (7.4-10.4); Platelet Count 134 10x3/uL (130-400); RBC Distribution Width 12.9 % (11.5-14.5)
[2024-07-03 23:51] LABS: ALT (SGPT) 16 U/L (8-55); AST (SGOT) 40 U/L (5-34); Albumin 3.7 g/dL (3.4-4.8); Alkaline Phosphatase 79 U/L (40-110); Anion Gap 15 mmol/L (10-20); BUN (Urea Nitrogen) 16 mg/dL (8.4-25.7); Bilirubin, Total 0.8 mg/dL (0.2-1.2); Calc. Creatinine Clearance 0 mL/min (70-130); Carbon Dioxide 26 mmol/L (23-31); Chloride 102 mmol/L (98-107); Estimated GFR 29; Globulin 4.2 g/dL (2.4-3.5); Glucose 113 mg/dL (83-110); Lipase 35 U/L (8-78); Magnesium 1.8 mg/dL (1.6-2.6); Potassium 4.8 mmol/L (3.5-5.1); Protein, Total 7.9 g/dL (5.8-8.1); Sodium 138 mmol/L (136-145)
[2024-07-03 23:58] LABS: Bilirubin Negative (Negative); Blood, Urine 2+ (Negative); CAUTI Indications for Culture Pelvic or flank pain; Clarity Clear (Clear); Glucose, Urine (Dipstick) Normal (Negative); Ketone, Urine Negative (Negative); Leukocyte Negative Leu/uL (Negative); Nitrite Negative (Negative); Protein, Urine (Dipstick) 10 mg/dL (Neg-Trace); RBC/HPF Greater than 50 HPF (0-3); Specific Gravity, Urine 1.016 (1.002-1.036); WBC/HPF 0-3 HPF (0-3); pH, Urine 7.5 (5.0-9.0)
[2024-07-03 23:59] LABS: Bacteria/HPF 1+ HPF (None Seen); Urine Culture Reflex No No
[2024-07-04] MEDS ORDERED: Acetaminophen 500 MG TAB ONE (01:18)
[2024-07-04] MEDS ORDERED: traMADol HCl 50 MG TAB PO PRN ×2 (01:36)
[2024-07-04] MEDS ORDERED: Acetaminophen 650 MG Suppository PR PRN (01:36)
[2024-07-04] MEDS ORDERED: Acetaminophen 325 MG TAB PO PRN (01:36)
[2024-07-04 03:03] VITALS: BMI 34.7
[2024-07-04] MEDS: cefTRIAXone\\ROCEPHIN 1 GM in Sodium Chloride 0.9% 100 ML IVPB SCH (03:07)
[2024-07-04] MEDS: Azithromycin 500 MG in Sodium Chloride 0.9% 250 ML 250 ML IVPB SCH (03:58)
[2024-07-04 06:32] LABS: #Basophils 0.04 10x3/uL (0.0-0.2); %Basophils 0.6 % (0.0-1.0); %Eosinophils 2.9 % (0.0-10.0); %Lymphocytes 18.5 % (21.0-51.0); %Monocytes 10.5 % (0.0-10.0); %Neutrophils 67.2 % (42.0-75.0); Hematocrit 38.8 % (42.0-52.0); Hemoglobin 12.3 g/dL (14.0-18.0); Mean Corpuscular HGB CONC 31.7 g/dL (32.0-36.0); Mean Corpuscular Hemoglobin 29.9 pg (27.0-31.0); Mean Corpuscular Volume 94.2 fL (78.0-98.0); Mean Platelet Volume 11.4 fL (7.4-10.4); Platelet Count 98 10x3/uL (130-400); RBC Distribution Width 13.2 % (11.5-14.5); Red Blood Cell (RBC) Count 4.12 mill/uL (4.70-6.10)
[2024-07-04 06:55] LABS: Anion Gap 12 mmol/L (10-20); BUN (Urea Nitrogen) 15 mg/dL (8.4-25.7); Calc. Creatinine Clearance 41 mL/min (70-130); Calcium 7.9 mg/dL (7.8-10.44); Carbon Dioxide 21 mmol/L (23-31); Chloride 109 mmol/L (98-107); Estimated GFR 35; Glucose 88 mg/dL (83-110); Potassium 4.1 mmol/L (3.5-5.1); Sodium 138 mmol/L (136-145)
[2024-07-04] MEDS: Escitalopram Oxalate 20 mg Tablet PO SCH (08:43)
[2024-07-04] MEDS: Famotidine 20 MG TAB PO SCH (08:43)
[2024-07-04] MEDS: Amlodipine 5 MG TAB PO SCH (08:43)
[2024-07-04] MEDS: Heparin 5,000 UNITS/ML VIAL SC SCH (08:44)
[2024-07-04] MEDS: Losartan 25 MG TAB PO SCH (08:45)
[2024-07-04] MEDS: Memantine 10 MG TAB PO SCH (08:45)
[2024-07-04] MEDS ORDERED: DONEPEZIL HCL 23 MG PO SCH (09:00)
[2024-07-04 13:35] LABS: Bacteria/HPF None Seen HPF (None Seen); Bilirubin Negative (Negative); Blood, Urine Negative (Negative); Clarity Clear (Clear); Glucose, Urine (Dipstick) Normal (Negative); Ketone, Urine Negative (Negative); Leukocyte Negative Leu/uL (Negative); Nitrite Negative (Negative); Protein, Urine (Dipstick) Negative (Neg-Trace); RBC/HPF 0-3 HPF (0-3); Specific Gravity, Urine 1.003 (1.002-1.036); Squamous Epithelial None Seen HPF (0-3); Urobilinogen Normal mg/dL (Less than 2); WBC/HPF 0-3 HPF (0-3); pH, Urine 6.5 (5.0-9.0)
[2024-07-04] MEDS ORDERED: Tamsulosin HCl 0.4 MG CAP PO SCH (21:00)
[2024-07-04] MEDS: cefTRIAXone\\ROCEPHIN 2 GM in Sodium Chloride 0.9% 100 ML IVPB SCH (21:08)
[2024-07-04] MEDS: QUEtiapine 25 MG TAB PO SCH (21:08)
[2024-07-04] MEDS: traZODone HCl 50 MG TAB PO SCH (21:09)
[2024-07-04] MEDS: Donepezil HCl 10 MG TAB PO SCH (21:09)
[2024-07-04] MEDS: Tamsulosin HCl 0.4 MG CAP PO SCH (21:09)
[2024-07-04] MEDS: Latanoprost 0.005% Ophth Soln 2.5 ml Bottle EA EYE SCH (21:13)
[2024-07-05] MEDS: Maxitrol 0.1% Opth 5 ML BOT EA EYE SCH (00:11)
[2024-07-05] MEDS: Levothyroxine Sodium 25 MCG TAB PO SCH (05:53)
[2024-07-05] MEDS ORDERED: traMADol HCl 50 MG TAB PO PRN ×6 (08:24→09:37)
[2024-07-05] MEDS: POLYMYXIN B EA EYE SCH (14:19)
[2024-07-05] MEDS: DEXAMETHASONE EA EYE SCH (14:19)
[2024-07-05] MEDS: NEOMYCIN EA EYE SCH (14:19)
[2024-07-06] MEDS: Azithromycin 250 MG TAB PO SCH (09:29)
[2024-07-06] MEDS: Enoxaparin 40 MG (0.4 mL) SYRINGE SC SCH (09:29)
[2024-07-07 11:21] VITALS: BP 133/67; TEMP 97.9
== END 2024-07-07 13:36 | DRG 195 ==
LOC: ERS 21:48 → T4-A 07-04 00:14 → OBSVTOIN 07-04 11:52
PROVIDERS: ADMIT Family Medicine; ATTEND Internal Medicine
DX: J18.9 Pneumonia, unspecified organism (principal); I10 Essential (primary) hypertension; F03.90 Unspecified dementia, unspecified severity, without behavioral disturbance, psychotic disturbance, mood disturbance, and anxiety; N40.0 Benign prostatic hyperplasia without lower urinary tract symptoms; Z98.49 Cataract extraction status, unspecified eye; Z87.891 Personal history of nicotine dependence; R33.9 Retention of urine, unspecified; Z79.01 Long term (current) use of anticoagulants; Z51.5 Encounter for palliative care; Z79.899 Other long term (current) drug therapy
CPT/HCPCS: 36415; 71045; 74176; 80048; 80053; 81001; 83605; 83690; 83735; 83880; 85025; 87040; 87086; 87428; 93005; 96365; J0456; J0696; J1650; J7050